=== PATIENT | female | born 1960 | race African-American/Black ===

== ENCOUNTER 2022-04-02 08:34 | Emergency (ER) | payer OTHER ==
[~2022-04-02 08:34] MED LIST: ALENDRONATE SOD70 MG PO; ALTOPREV40 MG PO; AMOXICILLIN500 MG PO; ANTIVERT25 MG PO; BUSPAR5 MG PO; CATAPRES 0.2MG0.2 MG PO; CATAPRES0.1 MG PO; COZAAR50 MG PO; DITROPAN5 MG PO; FLONASE ALLER15.8 ML; HCTZ12.5 MG PO; LEXAPRO 10MG TA10 MG PO; LOVASTATIN40 MG PO; NORVASC5 MG PO; POTASSIUM CHLO10 ME1 PO; PRINIVIL10 MG PO; PROTONIX40 M1 PO; SYMBICORT 80-10.2 GM INH; TOPROL XL 25MG25 MG PO; TRAZODONE HCL100 MG PO; UROCIT-K10 MEQ PO; VENTOLIN (2.5 MG/3 M INH; VITAMIN D250000 UNIT PO; VOLTAREN **OUT75 MG PO
[2022-04-02 09:16] LABS: EOSINOPHIL 0.7 % (0-5); HCT 39.3 % (37.0-47.0); HGB 13.1 g/dl (12.5-16.0); LYMPHOCYTE 27.6 % (15-48); MCH 29.2 pg (25.0-31.0); MCHC 33.3 g/dL (32.0-36.0); MCV 87.7 fL (78.0-100.0); MONOCYTE 8.4 % (0-12); MPV 11.1 fL (6.0-9.5); NRBC 0; PLT 215 K/uL (150-400); RBC 4.48 M/uL (4.20-5.40); RDW 13.7 % (11.5-14.0); WBC 5.8 K/uL (4.0-10.5)
[2022-04-02 09:20] LABS: INR 1.05 (0.9-1.2); PROTHROMBIN TIME 13.1 SECONDS (11.8-13.4)
[2022-04-02 09:21] LABS: D-DIMER 1.23 ug/mLFEU (0.00-0.41)
[2022-04-02 09:24] LABS: ALBUMIN 3.5 g/dL (3.4-5.0); BILIRUBIN - TOTAL 0.8 mg/dL (0.2-1.0); CREATININE 0.88 mg/dL (0.51-0.95); GLOBULIN (CALCULATION) 3.9 g/dL; TOTAL PROTEIN 7.4 g/dL (6.4-8.2)
== END 2022-04-02 13:29 | disposition home or self-care (01) ==
LOC: FER 08:34
PROVIDERS: Emergency Medicine
DX: R07.89 Other chest pain (principal); Z88.6 Allergy status to analgesic agent; Z28.311 Partially vaccinated for COVID-19
CPT/HCPCS: 36415; 71045; 71275; 80053; 84484; 85025; 85379; 85610; 85730; Q9967